=== PATIENT | male | born 1950 | race Caucasian/White ===

== ENCOUNTER → 2020-01-14 10:20 | Outpatient (CLI) | payer MEDICARE, OTHER, SELFPAY ==
--- NOTE | 2020-01-14 | DI.RAD.S_ITS ---
PROCEDURE: XR LUMBAR SPINE MIN 4V INDICATIONS: chronic left sided low back pain without sciatica TECHNIQUE: 5 views of the lumbar spine acquired. COMPARISON: None. FINDINGS: Bones: Minimal anterior wedging of the L1 vertebral body which could be physiologic. No fracture. Multilevel degenerative endplate sclerosis and spurring. Diffuse facet arthropathy. Grade 1 anterolisthesis of L4 on L5 and grade 1 retrolisthesis of L1 on L2 and L2 on L3. Severe narrowing of the L2-L3 and L3-L4 disc spaces as well as the L5-S1 disc space. Scoliosis also partially visualized. Soft tissues: Overlying bowel gas pattern is normal. No suspicious soft tissue calcifications. No evidence of abnormal motion with dynamic flexion and extension lateral views. IMPRESSION: Severe multilevel lumbar spondylosis and facet arthropathy as above Multilevel spondylolisthesis as above. No evidence of abnormal motion with dynamic flexion and extension lateral views. Dictated by: Cole Christopher M.D. on 01/14/2020 at 14:39 Approved by: Cole Christopher M.D. on 01/14/2020 at 14:49
--- NOTE | 2020-01-14 | DI.US.S_ITS ---
PROCEDURE: US ABD AORTA ANEURYSM SCREEN INDICATIONS: essential primary hypertension TECHNIQUE: Real time scanning was performed of the aorta and iliac arteries, with image documentation. COMPARISON: [facility], CR, XR LUMBAR SPINE MIN 4V, 01/14/2020, 10:31. FINDINGS: Aorta: Proximal aortic diameter measures 2.4 x 2.5 cm. Mid-aorta is not seen, as it is obscured by overlying bowel gas. Distal aortic diameter is 2.3 x 2.7 cm. Iliac arteries: Right common iliac artery measures 1.5 x 1.5 cm. Left common iliac artery measures 1.5 x 1.5 cm. IMPRESSION: Negative for aneurysm. Dictated by: Michael Heaton M.D. on 01/14/2020 at 13:59 Approved by: Michael Heaton M.D. on 01/14/2020 at 14:00
== END ==
PROVIDERS: Family Provider Family Medicine; PCP Family Medicine; Referring Provider Family Medicine; Visit Provider Family Medicine
DX: Z13.6 Encounter for screening for cardiovascular disorders (principal); M54.5 Low back pain; M47.816 Spondylosis without myelopathy or radiculopathy, lumbar region; M43.16 Spondylolisthesis, lumbar region; I10 Essential (primary) hypertension; E78.5 Hyperlipidemia, unspecified; G89.29 Other chronic pain
CPT/HCPCS: 72110; 76706

== ENCOUNTER → 2021-06-28 13:26 | Outpatient (CLI) | payer MEDICARE, OTHER, SELFPAY ==
[2021-06-29 22:49] LABS: Prostate Specific Antigen 4.49 ng/mL (0.10-4.00)
== END ==
PROVIDERS: Family Provider Family Medicine; PCP Family Medicine; Visit Provider Specialist
DX: R97.20 Elevated prostate specific antigen [PSA] (principal)
CPT/HCPCS: 84153

== ENCOUNTER → 2021-09-22 11:35 | Outpatient (CLI) | payer MEDICARE, OTHER, SELFPAY ==
[2021-09-22 19:17] LABS: Add Manual Diff / Slide Review NO; Basophils Absolute Auto 0 /uL (0-100); Basophils Percent Auto 0.4 % (0-2); Eosinophils Absolute Auto 100 /uL (0-450); Eosinophils Percent Auto 2.2 % (2-4); Hematocrit 45.7 % (41-53); Hemoglobin 15.9 g/dL (13.5-17.5); Lymphocytes Absolute Auto 1100 /uL (1100-4500); Lymphocytes Percent Auto 22.2 % (25-40); Mean Corpuscular HGB Conc 34.8 % (30-36); Mean Corpuscular Hemoglobin 33.5 PG (26-34); Mean Corpuscular Volume 96.3 fL (80-100); Monocytes Absolute Auto 500 /uL (0-900); Monocytes Percent Auto 10.1 % (3-14); Neutrophils Absolute Auto 3300 /uL (1500-7000); Neutrophils Percent Auto 65.1 % (50-75); Platelet Count 189 X10^3/uL (150-400); Red Blood Cell Count 4.75 X10^6/uL (4.5-5.9); Red Cell Distribution Width 13.4 % (11.6-14.8); White Blood Cell Count 5.1 X10^3/uL (4.5-11.0)
[2021-09-22 19:25] LABS: Alanine Aminotransferase 33 IU/L (<50); Albumin 3.7 g/dL (3.5-5.0); Albumin Globulin Ratio 1.6 (1.0-2.8); Alkaline Phosphatase 66 U/L (38-126); Aspartate Aminotransferase 32 IU/L (17-59); BUN Creatinine Ratio 19.5 (6-22); Bilirubin Total 0.5 mg/dL (0.2-1.3); Blood Urea Nitrogen 16 mg/dL (9-20); Calcium 9.3 mg/dL (8.4-10.2); Carbon Dioxide 28 mmol/L (22-32); Chloride 105 mmol/L (98-107); Cholesterol 154 mg/dL (140-199); Estimated Glomerular Filt Rate > 60 mL/min (>60); Globulin 2.3 g/dL (1.7-4.1); Glucose 115 mg/dL (80-110); HDL Cholesterol 33 mg/dL (40-60); HEMOLYSIS < 15 (0-50); LDL Cholesterol Calculated 96 mg/dL (<100); Sodium 138 mmol/L (137-145); Triglycerides 126 mg/dL (35-150)
[2021-09-22 19:54] LABS: Prostate Specific Antigen Scrn 4.04 ng/mL (0.1-4.0)
[2021-09-22 22:42] LABS: Hemoglobin A1C% w Est Avg Glu 5.5 % (4.0-6.0)
== END ==
PROVIDERS: Family Provider Family Medicine; PCP Family Medicine; Visit Provider Family Medicine
DX: Z12.5 Encounter for screening for malignant neoplasm of prostate (principal); I10 Essential (primary) hypertension; R73.09 Other abnormal glucose; E78.5 Hyperlipidemia, unspecified; K22.70 Barrett's esophagus without dysplasia; N13.8 Other obstructive and reflux uropathy; N40.1 Benign prostatic hyperplasia with lower urinary tract symptoms; R97.20 Elevated prostate specific antigen [PSA]; Z87.898 Personal history of other specified conditions
CPT/HCPCS: 80053; 80061; 83036; 85025; G0103

== ENCOUNTER → 2022-10-24 13:27 | Outpatient (CLI) | payer MEDICARE, OTHER, SELFPAY ==
[2022-10-24 20:00] LABS: Prostate Specific Antigen 3.92 ng/mL (0.10-4.00)
== END ==
PROVIDERS: Family Provider Family Medicine; PCP Family Medicine; Visit Provider Specialist
DX: R97.20 Elevated prostate specific antigen [PSA] (principal)
CPT/HCPCS: 84153

== ENCOUNTER → 2022-12-07 12:57 | Outpatient (CLI) | payer MEDICARE, OTHER, SELFPAY ==
[2022-12-07 19:43] LABS: Add Manual Diff / Slide Review NO; Basophils Absolute Auto 0 /uL (0-100); Basophils Percent Auto 0.4 % (0-2); Eosinophils Absolute Auto 100 /uL (0-450); Eosinophils Percent Auto 2.2 % (2-4); Hematocrit 46.2 % (41-53); Hemoglobin 15.9 g/dL (13.5-17.5); Lymphocytes Absolute Auto 1100 /uL (1100-4500); Lymphocytes Percent Auto 19.3 % (25-40); Mean Corpuscular HGB Conc 34.5 % (30-36); Mean Corpuscular Volume 98.5 fL (80-100); Monocytes Absolute Auto 400 /uL (0-900); Monocytes Percent Auto 7.7 % (3-14); Neutrophils Absolute Auto 4000 /uL (1500-7000); Neutrophils Percent Auto 70.4 % (50-75); Platelet Count 201 X10^3/uL (150-400); Red Blood Cell Count 4.69 X10^6/uL (4.5-5.9); Red Cell Distribution Width 13.3 % (11.6-14.8); White Blood Cell Count 5.7 X10^3/uL (4.5-11.0)
[2022-12-07 19:56] LABS: Alanine Aminotransferase 31 IU/L (<50); Albumin Globulin Ratio 1.7 (1.0-2.8); Alkaline Phosphatase 64 U/L (38-126); Aspartate Aminotransferase 30 IU/L (17-59); BUN Creatinine Ratio 20.5 (6-22); Bilirubin Total 0.9 mg/dL (0.2-1.3); Blood Urea Nitrogen 16 mg/dL (9-20); Calcium 9.4 mg/dL (8.4-10.2); Carbon Dioxide 27 mmol/L (22-32); Chloride 101 mmol/L (98-107); Cholesterol 190 mg/dL (140-199); Estimated Glomerular Filt Rate > 60 mL/min (>60); Globulin 2.4 g/dL (1.7-4.1); Glucose 105 mg/dL (80-110); HDL Cholesterol 42 mg/dL (40-60); HEMOLYSIS < 15 (0-50); LDL Cholesterol Calculated 102 mg/dL (<100); Potassium 3.8 mmol/L (3.4-5.1); Sodium 136 mmol/L (137-145); Total Protein 6.4 g/dL (6.3-8.2); Triglycerides 231 mg/dL (35-150)
[2022-12-07 20:23] LABS: TSH w/ Reflex to FT4 1.37 uIU/mL (0.47-4.68)
[2022-12-08 16:24] LABS: Hep C Virus Ab w/Reflex Quant NEGATIVE s/c (NEGATIVE)
== END ==
PROVIDERS: Family Provider Family Medicine; PCP Family Medicine; Visit Provider Family Medicine
DX: I10 Essential (primary) hypertension (principal); E78.2 Mixed hyperlipidemia; E78.5 Hyperlipidemia, unspecified; K22.70 Barrett's esophagus without dysplasia; R73.09 Other abnormal glucose; R97.20 Elevated prostate specific antigen [PSA]; Z68.38 Body mass index [BMI] 38.0-38.9, adult
CPT/HCPCS: 80053; 80061; 84443; 85025; 86803

== ENCOUNTER → 2023-10-24 10:48 | Outpatient (CLI) | payer MEDICARE, OTHER, SELFPAY | PROVIDERS: Family Provider Family Medicine; PCP Family Medicine; Visit Provider Specialist | DX: R97.20 Elevated prostate specific antigen [PSA] (principal) | CPT/HCPCS: 84153 ==

== ENCOUNTER → 2024-01-30 14:27 | Outpatient (CLI) | payer MEDICARE, OTHER, SELFPAY | PROVIDERS: Family Provider Family Medicine; PCP Family Medicine; Visit Provider Urology | DX: Z87.898 Personal history of other specified conditions (principal) | CPT/HCPCS: 84153; 84154 ==

== ENCOUNTER → 2024-05-06 10:10 | Outpatient (CLI) | payer MEDICARE, OTHER, SELFPAY ==
[2024-05-06 19:23] LABS: Chloride 109 mmol/L (98-107); HEMOLYSIS 49 (0-50)
[2024-05-06 19:26] LABS: BUN Creatinine Ratio 31.3 (6-22); Blood Urea Nitrogen 20 mg/dL (9-20); Calcium 9.3 mg/dL (8.4-10.2); Carbon Dioxide 24 mmol/L (22-32); Cholesterol 164 mg/dL (140-199); Estimated Glomerular Filt Rate > 60 mL/min (>60); Glucose 118 mg/dL (80-110); HDL Cholesterol 38 mg/dL (40-60); LDL Cholesterol Calculated 105 mg/dL (<100); Potassium 4.2 mmol/L (3.4-5.1); Sodium 138 mmol/L (137-145); Triglycerides 106 mg/dL (35-150)
[2024-05-06 19:30] LABS: Add Manual Diff / Slide Review NO; Basophils Absolute Auto 0 /uL (0-100); Basophils Percent Auto 0.6 % (0-2); Eosinophils Absolute Auto 200 /uL (0-450); Hematocrit 46.2 % (41-53); Hemoglobin 15.6 g/dL (13.5-17.5); Lymphocytes Absolute Auto 1800 /uL (1100-4500); Lymphocytes Percent Auto 26.3 % (25-40); Mean Corpuscular HGB Conc 33.6 % (30-36); Mean Corpuscular Hemoglobin 33.1 PG (26-34); Mean Corpuscular Volume 98.3 fL (80-100); Monocytes Absolute Auto 600 /uL (0-900); Monocytes Percent Auto 9.6 % (3-14); Neutrophils Absolute Auto 4000 /uL (1500-7000); Neutrophils Percent Auto 60.5 % (50-75); Platelet Count 207 X10^3/uL (150-400); Red Cell Distribution Width 13.7 % (11.6-14.8); White Blood Cell Count 6.7 X10^3/uL (4.5-11.0)
== END ==
PROVIDERS: Family Provider Family Medicine; PCP Family Medicine; Visit Provider Family Medicine
DX: K22.70 Barrett's esophagus without dysplasia (principal); E78.2 Mixed hyperlipidemia; N40.1 Benign prostatic hyperplasia with lower urinary tract symptoms; N13.8 Other obstructive and reflux uropathy; R97.20 Elevated prostate specific antigen [PSA]; I10 Essential (primary) hypertension
CPT/HCPCS: 80048; 80061; 84153; 85025

== ENCOUNTER → 2024-07-10 12:42 | Outpatient (CLI) | payer MEDICARE, OTHER, SELFPAY | PROVIDERS: PCP Family Medicine; Visit Provider Physician Assistant Medical | DX: M54.9 Dorsalgia, unspecified (principal) | CPT/HCPCS: 87086 ==

== ENCOUNTER → 2024-07-15 11:18 | Outpatient (CLI) | payer MEDICARE, OTHER, SELFPAY | PROVIDERS: PCP Family Medicine; Visit Provider Urology | DX: Z87.898 Personal history of other specified conditions (principal); N40.1 Benign prostatic hyperplasia with lower urinary tract symptoms; N13.8 Other obstructive and reflux uropathy | CPT/HCPCS: 84153; 84154 ==

== ENCOUNTER → 2024-07-16 15:48 | Outpatient (CLI) | payer MEDICARE, OTHER, SELFPAY ==
--- NOTE | 2024-07-16 15:49 | DI.US.S_ITS ---
PROCEDURE: US RENAL COMPLETE INDICATIONS: R/O kidney stone R groin hernia TECHNIQUE: Real-time scanning was performed of the kidneys and bladder, with image documentation. COMPARISON: None. FINDINGS: Kidneys: Kidneys are normal in size. Right kidney measures 12.8 cm long; left kidney measures 14.0 cm long. Right renal cortical thickness is 1.2 cm; left renal cortical thickness is 1.7 cm. Renal cortical echotexture is normal. No hydronephrosis or nephrolithiasis. No suspicious solid mass lesions. Simple cyst at the inferior pole the right kidney measuring 1.6 cm. Bladder: Pre-void bladder volume is 126 mL. Post-void residual is 76 mL. Bladder appears to have a mildly irregular wall. On pre-void images, bilateral ureteral jets are noted with color Doppler interrogation. (Of note, ureteral jets may not be detectable in up to 25% of cases due to insufficient differences in specific gravity between ureteral and bladder urine). Miscellaneous: No free pelvic fluid. Right inguinal hernia which appears to only contain fat with defect measuring 2.3 x 2.2 cm and is mostly reducible. Prostate is enlarged. IMPRESSION: 1. No renal stones are identified. No hydronephrosis. 2. Right inguinal hernia containing fat which appears mostly reducible. 3. Prostate is enlarged. Postvoid residual volume of 76 mL. Bladder wall appears mildly irregular, may be secondary to chronic bladder outlet obstruction. Dictated by: Edwin Bowman M.D. on 07/17/2024 at 13:59 Approved by: Edwin Bowman M.D. on 07/17/2024 at 14:08
== END ==
PROVIDERS: PCP Family Medicine; Referring Provider Physician Assistant Medical; Visit Provider Physician Assistant Medical
DX: K40.90 Unilateral inguinal hernia, without obstruction or gangrene, not specified as recurrent (principal); N40.0 Benign prostatic hyperplasia without lower urinary tract symptoms; R10.9 Unspecified abdominal pain
CPT/HCPCS: 76770

== ENCOUNTER → 2024-10-30 10:13 | Outpatient (CLI) | payer MEDICARE, OTHER, SELFPAY ==
[2024-10-30 21:13] LABS: Add Manual Diff / Slide Review NO; Hematocrit 48.0 % (41-53); Hemoglobin 16.3 g/dL (13.5-17.5); Lymphocytes Absolute Auto 1400 /uL (1100-4500); Mean Corpuscular HGB Conc 34.0 % (30-36); Mean Corpuscular Hemoglobin 33.8 PG (26-34); Mean Corpuscular Volume 99.5 fL (80-100); Platelet Count 172 X10^3/uL (150-400)
[2024-10-30 21:43] LABS: Blood Urea Nitrogen 18 mg/dL (9-20); Calcium 10.0 mg/dL (8.4-10.2); Carbon Dioxide 24 mmol/L (22-32); Chloride 108 mmol/L (98-107); Cholesterol 161 mg/dL (140-199); Estimated Glomerular Filt Rate > 60 mL/min (>60); Glucose 113 mg/dL (70-99); HDL Cholesterol 42 mg/dL (40-60); HEMOLYSIS 18 (0-50); Potassium 4.3 mmol/L (3.4-5.1); Sodium 139 mmol/L (137-145); Triglycerides 122 mg/dL (35-150)
[2024-10-30 22:14] LABS: Prostate Specific Antigen 4.43 ng/mL (0.10-4.00)
== END ==
PROVIDERS: PCP Family Medicine; Visit Provider Family Medicine
DX: E78.2 Mixed hyperlipidemia (principal); N40.1 Benign prostatic hyperplasia with lower urinary tract symptoms; K22.70 Barrett's esophagus without dysplasia; N13.8 Other obstructive and reflux uropathy; R73.09 Other abnormal glucose; R97.20 Elevated prostate specific antigen [PSA]; I10 Essential (primary) hypertension
CPT/HCPCS: 80048; 80061; 84153; 85025

== ENCOUNTER 2025-03-28 15:22 | Observation (INO) | payer MEDICARE, OTHER, SELFPAY ==
[2025-03-28] VITALS (20 sets, daily range): BP systolic 138–166; BP diastolic 76–91; PULSE 67–79; RESP 15–23; TEMP 36.5–36.7; O2SAT 92–96; BMI 23.0; BMI 31.9
--- NOTE | 2025-03-28 | DI.ECHO.S_ITS ---
[facility]+ [facility] : : [address] : : [place] : : [id number] : : Phone: [phone] Echocardiogram Report + + :Name: DENISE MARION Study Date: 03/29/2025 Height: 72 in : :[facility] ReadingLocation: Weight: 230 lb : : Gender: Male BSA: 2.3 m2 : :: 1950 Age: 75 yrs BP: 145/91 mmHg: :Reason For Study: PE : :Ordering Physician: JASMYN, : :MAYANK Performed By: Alban Odell : :Referring: MAYANK VINES : + + Interpretation Summary The study quality was technically difficult. No parasternal or apical windows available. Study obtained mostly from the right subcostal window. The left ventricular ejection fraction is grossly normal. The right ventricle grossly appears normal in size with probable normal systolic function. No obvious valvular abnormalities. The aortic root is mildly dilated. Procedure: A two-dimensional transthoracic echocardiogram with color flow and Doppler was performed. The study quality was technically difficult. The study quality was technically limited. There is no prior echocardiogram noted for this patient. The patient was in normal sinus rhythm during the exam. Left Ventricle: The left ventricle is grossly normal size. There is normal left ventricular wall thickness. The left ventricular ejection fraction is grossly normal. Right Ventricle: The right ventricle is not well visualized. The right ventricle grossly appears normal in size with probable normal systolic function. Atria: The left atrium is not well visualized. Right atrium not well visualized. There is no Doppler evidence for an interatrial shunt. Mitral Valve: The mitral valve is not well visualized. The mitral valve is grossly normal. There is no mitral regurgitation noted. Aortic Valve: The aortic valve is trileaflet. The aortic valve opens well. The aortic valve is slightly calcified. No aortic regurgitation is present. Tricuspid Valve: The tricuspid valve leaflets are thin and pliable. There is trace tricuspid regurgitation. Pulmonic Valve: The pulmonic valve is not well seen, but is grossly normal. There is no pulmonic valvular regurgitation. Great Vessels: The aortic root is mildly dilated. The ascending aorta could not be visualized. The pulmonary artery is not well visualized, but is probably normal size. The IVC is dilated (diameter is greater than 2.1 cm) yet it collapses greater than 50% with a sniff. This suggests a right atrial pressure of 8 mm Hg. Pericardium/ Pleura There is no pericardial effusion. MMode/2D Measurements & Calculations LVIDd: 5.3 cm LVOT diam: 1.9 cm LVIDs: 3.5 cm Ao root diam: 4.0 cm FS: 33.9 % EPSS: 1.3 cm IVSd: 1.00 cm LVPWd: 1.0 cm LV echols. diameter/BSA (cm/m^2): 2.3 LV sys. diameter/BSA (cm/m^2): 1.5 Doppler Measurements & Calculations PA V2 max: 111.6 cm/sec PA V2 mean: 73.6 cm/sec PA mean P.5 mmHg PA pr(Accel): 58.4 mmHg Reading Physician:03:48 PM
--- NOTE | 2025-03-28 16:19 | ED_ITS ---
HPI - Abdominal Pain <Kelli Shrestha PA-C - Last Filed: 03/28/25 20:38> General Chief Complaint: Abdominal Pain Stated Complaint: coughed yesterday and felt pain in hernia Time Seen by Provider: 03/28/25 16:17 Source: patient Mode of arrival: Ambulatory History of Present Illness HPI narrative: Mr. Godfrey is a pleasant 75-year-old male with a past medical history of HTN, HLD, BPH, Barretts esophagus, right inguinal hernia who presents to the emergency department for severe right inguinal hernia pain since coughing yesterday, with increased swelling over the last month. Patient states he had this hernia since the spring however over the last month it has gotten more swollen. Last night while having a coughing fit which he attributes to his Camara's esophagus. While coughing he developed acute pain in the right hernia and it became larger than usual. He is not in a significant amount of pain right now but he does notice hernia is much larger than it previously was. Patient states that he has been having regular bowel movements, no nausea vomiting dysuria hematuria. No blood thinners. No fevers or chills. He has not eaten anything today. Related Data Home Medications ?Medication ?Instructions ?Recorded ?Confirmed cholecalciferol (vitamin D3) 50 50 mcg PO DAILY 03/28/25 mcg (2,000 unit) tablet coenzyme Q10 75 mg capsule (Ultra 300 mg PO DAILY 10/3003/28/25 CoQ10) loratadine 10 mg capsule 10 mg PO DAILY PRN allergy s ymptoms 11/23/22 03/28/25 omega [id number]-[id number]-fish oil 230 mg See Rx Instructions PO DAILY PRN 11/23/22 10/10/24 (150 mg-30 mg)-710 mg emulsion packet triamcinolone acetonide 0.1 % 1 applic topical DAILY P RN 11/23/22 10/10/24 topical cream aspirin 81 mg tablet,delayed 81 mg PO DAILY #0 tabs 03/28/25 release fluorouracil 5 % topical cream 1 applic topical BID 03/28/25 Previous Rx's ?Medication ?Instructions ?Recorded tamsulosin 0.4 mg capsule 0.8 mg (2 x 0.4 mg) PO BEDTI ME 12/17/24 #180 caps lisinopril 20 1 tab PO DAILY #90 tabs 12/30 11/22 mg-hydrochlorothiazide 12.5 mg tablet atorvastatin 20 mg tablet (Lipitor) 20 mg PO BEDTIME # 90 tabs 01/16/25 apixaban 5 mg (74 tabs) tablets in See Rx Instructions PO .COMPLEX 03/29/25 a dose pack (Eliquis DVT-PE Treat #74 ea 30D Start) Allergies Allergy/AdvReac Type Severity Reaction Status Date / Time morphine Allergy Unknown Verified 03/28/25 15:51 Review of Systems <Kelli Shrestha PA-C - Last Filed: 03/28/25 20:38> Review of Systems ROS Unobtainable: All systems reviewed & are unremarkable except as noted in HPI and below Patient History <Kelli Shrestha PA-C - Last Filed: 03/28/25 20:38> Medical History Shoulder pain (~1974) Foot pain (~2014) Mumps Measles Chicken pox Ruptured tympanic membrane (~2004) History of urinary incontinence (~2019) GERD (gastroesophageal reflux disease) (~2009) Routine general medical examination at a health care facility History of melanoma (~1995) Erectile dysfunction BPH w urinary obs/LUTS (~2014) Elevated PSA Tonsillectomy planned Male circumcision Male erectile disorder Elevated PSA Surgical History Anesthesia History of carpal tunnel surgery (~2004) History of tonsillectomy (~1956) Melanoma (~1995) H/O shoulder surgery (~1973) Family History Father Stroke Heart disease Hyperlipidemia Mother Emphysema of lung Sister Emphysema of lung Social History marital status: number of children: 1 household members: spouse and children Smoking Status: Never smoker alcohol intake: current Smoking Status: Never smoker Alcohol type: wine Exam <Kelli Shrestha PA-C - Last Filed: 03/28/25 20:38> Narrative Exam Narrative: GENERAL: 75 year old patient appears stated age. Well-developed patient, in no acute distress. HEAD: Atraumatic. Normocephalic. EYES: No scleral icterus. No injection or drainage. NECK: Trachea midline. Cervical ROM intact. CARDIOVASCULAR: Regular rate and rhythm. RESPIRATORY: ?Nonlabored respirations. ?Speaking in clear, full sentences. ?Somewhat diminished breath sounds. No wheezing or crackles. GASTROINTESTINAL: Abdomen soft, nondistended. There is a large right inguinal hernia, in his soft and compressible but not easily reducible. No overlying skin changes. No tenderness to palpation of bilateral testicles. Bowel sounds are present. EXTREMITIES: 1+ BL LE edema. BACK: No CVA tenderness. NEURO: AOx3. ?Clear speech. ?Moves all 4 extremities appropriately. SKIN: No rash or erythema of visible areas. Initial Vital Signs Initial Vital Signs: Vital Signs Temperature 98.0 F 03/28/25 15:51 Pulse Rate 79 03/28/25 15:51 Respiratory Rate 18 03/28/25 15:51 Blood Pressure 154/90 H 03/28/25 15:51 Pulse Oximetry 95 03/28/25 15:51 Oxygen Delivery Method Room Air 03/28/25 15:51 <Jose Correia MD - Last Filed: 03/31/25 08:21> Initial Vital Signs Initial Vital Signs: Vital Signs Temperature 98.0 F 03/28/25 15:51 Pulse Rate 79 03/28/25 15:51 Respiratory Rate 18 03/28/25 15:51 Blood Pressure 154/90 H 03/28/25 15:51 Pulse Oximetry 95 03/28/25 15:51 Oxygen Delivery Method Room Air 03/28/25 15:51 Course <Kelli Shrestha PA-C - Last Filed: 03/28/25 20:38> Orders Ordered: Discontinued Medications Acetaminophen (Acetaminophen 325 Mg Tablet) 650 mg PO Q6H PRN PRN Reason: Fever/Mild Pain (1-3) Hydrocodone Bitart/Acetaminophen (Hydrocodone/Acet 5/325 Tablet) 1 tab PO Q4H PRN PRN Reason: Pain, Moderate (4-6) Last Admin: 03/29/25 13:09 Dose: 1 tab Documented By: RONY Apixaban (Apixaban 5 Mg Tablet) 10 mg PO NOW ONE Stop: 03/29/25 17:02 Aspirin (Aspirin Ec 81 Mg Tablet) 81 mg PO DAILY STEFFI Last Admin: 03/29/25 09:18 Dose: 81 mg Documented By: RONY Enoxaparin Sodium (Enoxaparin 100 Mg/Ml Syringe) 75 mg 1 mg/kg (75 mg) SUBCUT NOW ONE Stop: 03/28/25 21:33 Last Admin: 03/28/25 22:17 Dose: 75 mg Documented By: ORQUIDEA Enoxaparin Sodium (Enoxaparin 100 Mg/Ml Syringe) 75 mg 1 mg/kg (75 mg) SUBCUT BID [facility] Last Admin: 03/29/25 09:18 Dose: 75 mg Documented By: RONY Hydromorphone HCl (Hydromorphone Hcl 0.5 Mg/0.5 Ml Syringe) 0.5 mg IV NOW ONE Stop: 03/28/25 16:33 Last Admin: 03/28/25 16:57 Dose: 0.5 mg Documented By: ORQUIDEA Sodium Chloride (Normal Saline 0.9%) 1,000 mls @ 500 mls/hr IV BOLUS ONE Stop: 03/28/25 18:31 Last Infusion: 03/28/25 17:26 Dose: Infused Documented By: Infusion: 03/28/25 17:26 Dose: 0 mls/hr Documented By: Admin: 03/28/25 16:58 Dose: 500 mls/hr Documented By: ORQUIDEA Naloxone HCl (Naloxone 0.4 Mg/Ml Vial) 0.2 mg IV Q2MIN PRN PRN Reason: Opiate Reversal Ondansetron HCl (Ondansetron 4 Mg/2 Ml Inj) 4 mg IV NOW ONE Stop: 03/28/25 16:33 Last Admin: 03/28/25 16:57 Dose: 4 mg Documented By: ORQUIDEA Ondansetron HCl (Ondansetron 4 Mg/2 Ml Inj) 4 mg IV Q8HR PRN PRN Reason: Nausea And Vomiting Tamsulosin HCl (Tamsulosin 0.4 Mg Capsule) 0.8 mg PO BEDTIME [facility] Vital Signs Vital signs: Vital Signs - 8 hr 03/28/25 15:51 03/28/25 16:57 03/28/25 17:00 Temperature 98.0 F Pulse Rate 79 68 Respiratory Rate 18 Blood Pressure 154/90 H 138/76 Pulse Oximetry 95 92 Oxygen Delivery Method Room Air 03/28/25 17:00 03/28/25 17:37 03/28/25 18:00 Temperature Pulse Rate 67 73 72 Respiratory Rate 16 Blood Pressure Pulse Oximetry 95 93 94 Oxygen Delivery Method 03/28/25 18:03 03/28/25 18:03 03/28/25 18:30 Temperature Pulse Rate 77 Respiratory Rate 16 Blood Pressure 145/79 H 156/79 H Pulse Oximetry 95 Oxygen Delivery Method 03/28/25 18:30 03/28/25 19:00 03/28/25 19:30 Temperature Pulse Rate 73 76 75 Respiratory Rate 20 Blood Pressure Pulse Oximetry 95 95 93 Oxygen Delivery Method 03/28/25 19:46 03/28/25 19:46 03/28/25 20:00 Temperature Pulse Rate 75 Respiratory Rate 16 Blood Pressure 153/84 H 156/89 H Pulse Oximetry 96 Oxygen Delivery Method 03/28/25 20:00 03/28/25 20:30 03/28/25 20:30 Temperature Pulse Rate 72 72 Respiratory Rate 22 Blood Pressure 166/88 H Pulse Oximetry 94 95 Oxygen Delivery Method 03/28/25 20:43 03/28/25 21:00 Temperature Pulse Rate Respiratory Rate 16 Blood Pressure 151/78 H Pulse Oximetry 94 Oxygen Delivery Method <Jose Correia MD - Last Filed: 03/31/25 08:21> Orders Ordered: Discontinued Medications Acetaminophen (Acetaminophen 325 Mg Tablet) 650 mg PO Q6H PRN PRN Reason: Fever/Mild Pain (1-3) Hydrocodone Bitart/Acetaminophen (Hydrocodone/Acet 5/325 Tablet) 1 tab PO Q4H PRN PRN Reason: Pain, Moderate (4-6) Last Admin: 03/29/25 13:09 Dose: 1 tab Documented By: RONY Apixaban (Apixaban 5 Mg Tablet) 10 mg PO NOW ONE Stop: 03/29/25 17:02 Aspirin (Aspirin Ec 81 Mg Tablet) 81 mg PO DAILY [facility] Last Admin: 03/29/25 09:18 Dose: 81 mg Documented By: RONY Enoxaparin Sodium (Enoxaparin 100 Mg/Ml Syringe) 75 mg 1 mg/kg (75 mg) SUBCUT NOW ONE Stop: 03/28/25 21:33 Last Admin: 03/28/25 22:17 Dose: 75 mg Documented By: ORQUIDEA Enoxaparin Sodium (Enoxaparin 100 Mg/Ml Syringe) 75 mg 1 mg/kg (75 mg) SUBCUT BID [facility] Last Admin: 03/29/25 09:18 Dose: 75 mg Documented By: RONY Hydromorphone HCl (Hydromorphone Hcl 0.5 Mg/0.5 Ml Syringe) 0.5 mg IV NOW ONE Stop: 03/28/25 16:33 Last Admin: 03/28/25 16:57 Dose: 0.5 mg Documented By: ORQUIDEA Sodium Chloride (Normal Saline 0.9%) 1,000 mls @ 500 mls/hr IV BOLUS ONE Stop: 03/28/25 18:31 Last Infusion: 03/28/25 17:26 Dose: Infused Documented By: Infusion: 03/28/25 17:26 Dose: 0 mls/hr Documented By: Admin: 03/28/25 16:58 Dose: 500 mls/hr Documented By: ORQUIDEA Naloxone HCl (Naloxone 0.4 Mg/Ml Vial) 0.2 mg IV Q2MIN PRN PRN Reason: Opiate Reversal Ondansetron HCl (Ondansetron 4 Mg/2 Ml Inj) 4 mg IV NOW ONE Stop: 03/28/25 16:33 Last Admin: 03/28/25 16:57 Dose: 4 mg Documented By: ORQUIDEA Ondansetron HCl (Ondansetron 4 Mg/2 Ml Inj) 4 mg IV Q8HR PRN PRN Reason: Nausea And Vomiting Tamsulosin HCl (Tamsulosin 0.4 Mg Capsule) 0.8 mg PO BEDTIME [facility] Vital Signs Vital signs: Vital Signs - 8 hr 03/28/25 15:51 03/28/25 16:57 03/28/25 17:00 Temperature 98.0 F Pulse Rate 79 68 Respiratory Rate 18 Blood Pressure 154/90 H 138/76 Pulse Oximetry 95 92 Oxygen Delivery Method Room Air 03/28/25 17:00 03/28/25 17:37 03/28/25 18:00 Temperature Pulse Rate 67 73 72 Respiratory Rate 16 Blood Pressure Pulse Oximetry 95 93 94 Oxygen Delivery Method 03/28/25 18:03 03/28/25 18:03 03/28/25 18:30 Temperature Pulse Rate 77 Respiratory Rate 16 Blood Pressure 145/79 H 156/79 H Pulse Oximetry 95 Oxygen Delivery Method 03/28/25 18:30 03/28/25 19:00 03/28/25 19:30 Temperature Pulse Rate 73 76 75 Respiratory Rate 20 Blood Pressure Pulse Oximetry 95 95 93 Oxygen Delivery Method 03/28/25 19:46 03/28/25 19:46 03/28/25 20:00 Temperature Pulse Rate 75 Respiratory Rate 16 Blood Pressure 153/84 H 156/89 H Pulse Oximetry 96 Oxygen Delivery Method 03/28/25 20:00 03/28/25 20:30 03/28/25 20:30 Temperature Pulse Rate 72 72 Respiratory Rate 22 Blood Pressure 166/88 H Pulse Oximetry 94 95 Oxygen Delivery Method 03/28/25 20:43 03/28/25 21:00 Temperature Pulse Rate Respiratory Rate 16 Blood Pressure 151/78 H Pulse Oximetry 94 Oxygen Delivery Method MDM - Abdominal Pain <Kelli Shrestha PA-C - Last Filed: 03/28/25 20:38> Medical Records Attestation: I reviewed the patient's medical records. Lab Data 03/29/25 05:24 03/29/25 05:24 Labs: Lab Results 03/28/25 03/28/25 03/28/25 Range/Units 16:50 18:45 20:08 WBC 7.0 (4.5-11.0) X10^3/uL RBC 4.58 (4.5-5.9) X10^6/uL Hgb 15.3 (13.5-17.5) g/dL Hct 44.9 (41-53) % MCV 97.9 (80-100) fL MCH 33.4 (26-34) PG MCHC 34.1 (30-36) % RDW 13.3 (11.6-14.8) % Plt Count 228 (150-400) X10^3/uL Neut % (Auto) 74.9 (50-75) % Lymph % (Auto) 15.3 L (25-40) % [place] % (Auto) 7.6 (3-14) % Eos % (Auto) 1.4 L (2-4) % Baso % (Auto) 0.8 (0-2) % Neut # (Auto) 5200 (7140-2539) /uL Lymph # (Auto) 1100 (1617-1509) /uL [place] # (Auto) 500 (0-900) /uL Eos # (Auto) 100 (0-450) /uL Baso # (Auto) 100 (0-100) /uL PT 12.2 (9.4-12.5) SECONDS INR 1.1 (0.9-1.3) APTT 27 (25.1-36.5) SECONDS Sodium 139 (137-145) mmol/L Potassium 3.8 (3.4-5.1) mmol/L Chloride 109 H (98-107) mmol/L Carbon Dioxide 26 (22-32) mmol/L BUN 19 (9-20) mg/dL Creatinine 0.69 (0.66-1.25) mg/dL Estimated GFR > 60 (>60) mL/min BUN/Creatinine Ratio 27.5 H (6-22) Glucose 102 H (70-99) mg/dL Lactate 1.1 (0.7-2.1) mmol/L Calcium 9.6 (8.4-10.2) mg/dL Total Bilirubin 0.6 (0.2-1.3) mg/dL AST 21 (17-59) IU/L ALT 17 (<50) IU/L Alkaline Phosphatase 58 (38-126) U/L Total Creatine Kinase < 20 L (55-170) U/L Troponin I 0.013 (0.01-0.034) ng/mL NT-Pro-B Natriuret Pep 369 (<450) pg/mL Total Protein 6.6 (6.3-8.2) g/dL Albumin 3.6 (3.5-5.0) g/dL Globulin 3.0 (1.7-4.1) g/dL Albumin/Globulin Ratio 1.2 (1.0-2.8) Lipase 32 (23-300) U/L Procalcitonin 0.039 (<0.5) ng/mL Urine RBC 0-1/hpf (0-5/HPF) Urine WBC 0-1/hpf (0-5/HPF) Ur Squamous Epith Cells 0-1 /hpf (0-5/HPF) Urine Bacteria Occasional (0-1) (None) Urine Mucus 1+ H (Negative) Ur Culture Indicated? Cult not indicated Vol Urine Centrifuged 10ml (spun) Point of care testing: Urine Dip Bedside Urine Glucose Negative Bedside Urine Bilirubin - Negative Bedside Urine Ketone + 15 Urine Specific [place] 1.015 Bedside Urine Occult Blood - Negative Bedside Urine pH 6.0 Bedside Urine Protein - Negative Bedside Urine Urobilinogen - Negative Bedside Urine Nitrite - Negative Bedside Urine Leukocytes - Negative Esterase Imaging Data CT scan - abdomen/pelvis: Radiologist's Impression: PROCEDURE: CT ABDOMEN PELVIS W CON INDICATIONS: large painful R inguinal hernia TECHNIQUE: After the administration of intravenous contrast, axial sections acquired from the lung bases to the pubic symphysis. Coronal and sagittal reformats were performed. For radiation dose reduction, the following was used: automated exposure control, adjustment of mA and/or kV according to patient size. COMPARISON: None. FINDINGS: Image quality: Diagnostic. Lower Chest: Loculated left-sided pleural effusion. Rounded atelectasis in the right lung base. Cardiomegaly. ABDOMEN: Liver: Scattered subcentimeter hypoattenuating lesions, too small to characterize by CT but probably small cysts. Gallbladder: No radiopaque gallstones or wall thickening. Biliary ducts: No biliary dilation. Pancreas: No ductal dilation. Spleen: Size is within normal limits. Adrenal Glands: No adrenal nodules. Kidneys and Ureters: No hydronephrosis. No solid mass. No complex renal cystic lesion which requires follow up. Stomach and Bowel: Normal colonic caliber, without significant wall thickening. Colonic diverticulosis without evidence of diverticulitis. Peritoneum: Small volume free fluid in the right inguinal canal. Ventral Wall: No significant ventral hernia. Abdominal Nodes: No retroperitoneal or mesenteric adenopathy by size criteria. Vessels: Aorta and inferior vena cava are normal in size. PELVIS: Pelvic Organs: Unremarkable. Bladder: Focal anterior bladder wall thickening with central calcification. Pelvic Nodes: No enlarged lymph nodes. Miscellaneous: Large right direct inguinal hernia containing the cecum and appendix. Small free fluid is present as well. Bones: No aggressive osseous abnormality. IMPRESSION: Large right direct inguinal hernia containing the cecum and noninflamed appendix. Trace free fluid within the inguinal canal is likely reactive. Anterior bladder wall thickening with coarse calcification, raising the concern for malignancy in a urachal remnant. Urology referral is recommended. Trace left loculated pleural effusion. Colonic diverticulosis without evidence of diverticulitis. Dictated by: Al London M.D. on 03/28/2025 at 17:54 Approved by: Al London M.D. on 03/28/2025 at 17:57 CTA Chest: Radiologist's Impression: PROCEDURE: CT ANGIO CHEST PE PROTOCOL INDICATIONS: cough, pleural effusion, occ hemoptysis, bladder Ca TECHNIQUE: After the administration of intravenous contrast, 2 mm thick sections acquired from the pulmonary apices to the posterior costophrenic angles. 3-dimensional maximum intensity projection (MIP) coronal and sagittal reformats were then acquired through the thorax. For radiation dose reduction, the following was used: automated exposure control, adjustment of mA and/or kV according to patient size. COMPARISON: None. FINDINGS: Image quality: Diagnostic. Pulmonary arteries: Pulmonary embolus in the distal right pulmonary artery, extending into the lobar and subsegmental pulmonary arteries, predominantly of the right upper lobe. Lower Neck: No enlarged lymph nodes. Thyroid: No thyroid nodules which require sonographic follow up, per consensus guidelines. Axillae: No enlarged lymph nodes. Chest Wall: Unremarkable. Bones: Unremarkable. Lungs and Pleura: Small loculated pleural effusion on the left, with bibasilar atelectasis. Heart: Heart size is globally enlarged, with normal left ventricle to right ventricle ratio. No pericardial effusion. Thoracic Vessels: No aortic aneurysm. Mediastinum and Jade: No enlarged lymph nodes. Esophagus: No wall thickening. No hiatal hernia. Upper Abdomen: Visualized upper abdomen solid organs and bowel loops appear normal. IMPRESSION: Moderate burden of distal main to lobar and segmental pulmonary embolus of the right lung. No evidence of heart strain or infarct. No acute cardiopulmonary process. Findings discussed with provider Kelli at time of dictation. Dictated by: Al London M.D. on 03/28/2025 at 19:52 Approved by: Al London M.D. on 03/28/2025 at 19:56 [facility] Narrative Medical decision making narrative: 75-year-old male with a past medical history of HTN, HLD, BPH, Barretts esophagus, right inguinal hernia who presents to the emergency department for severe right inguinal hernia pain since coughing yesterday, with increased swelling over the last month. Differential diagnosis includes but isn't limited to inguinal hernia, incarcerated hernia, strangulated hernia, appendicitis, colitis, UTI, etc. On exam the patient is in no acute distress, nontoxic appearing, vital signs appropriate. Patient does have a large palpable right inguinal hernia, it is soft, no overlying skin changes, I am not able to completely reduce it myself. We will obtain CT abdomen pelvis, CBC, CMP, lactate, urinalysis, treat with fluids Zofran and Dilaudid. CT abdomen pelvis reveals large right direct inguinal hernia containing the cecum and noninflamed appendix. No obstruction discussed. The anterior bladder wall is also thickened with coarse calcifications, raising concern for malignancy in a urachal remnant, urology referral recommended. Trace left loculated pleural effusion. Colonic diverticulosis without evidence of diverticulitis. Attending physician, Dr. Correia, performed bedside hernia reduction attempt. Hernia was not able to be completely reduced however it was partially reduced with subsequent decrease in hernia size. 1824: Dr. Correia spoke with general surgery, Dr. Chu, who recommends outpatient follow-up at this time. 1899: Printed and reviewed all imaging results with the patient his at the bedside. Discussed my concerns for possible bladder malignancy given CT results. Also discussed pleural effusion and upon further history patient informs me that he has actually been coughing up a little bit of blood the last few days but he assumed that this was because of his Barretts esophagus. After further discussion with Dr. Correia will add on CTA PE protocol. 1916: Spoke with urologist on-call, Dr. Power. Reviewed the patient's CT results with him concerning for bladder malignancy. At this time he recommends the patient follow up with the urologist for cystoscopy, no emergent recommendations. 1955: Received call from radiology, Dr. London. Patient does have a distal right pulmonary embolism, no heart strain. Dr. Correia made aware, EKG cardiac labs added. 2018: Final CTA read reveals moderate burden of distal main to lobar and segmental pulmonary embolus of the right lung. No evidence of heart strain or infarct. No acute cardiopulmonary process, there is a small loculated pleural effusion on the left with bibasilar atelectasis.' 2034: Printed and reviewed all imaging results with patient and his at bedside. Informed patient that he has a blood clot in his lung, we will need to be started on blood thinners and be admitted to the hospital. Patient denies any history hemorrhagic stroke, recent surgery, black stool, bloody stool, hematemesis or other concerns for bleed, no recent fall or trauma. Patient is agreeable to admission to the hospital. Transfer of care to nighttime ED doctor, Dr. Correia. <Jose Correia MD - Last Filed: 03/31/25 08:21> Lab Data Labs: Lab Results 11/03/28/25 03/28/25 Range/Units 16:50 18:45 20:08 WBC 7.0 (4.5-11.0) X10^3/uL RBC 4.58 (4.5-5.9) X10^6/uL Hgb 15.3 (13.5-17.5) g/dL Hct 44.9 (41-53) % MCV 97.9 (80-100) fL MCH 33.4 (26-34) PG MCHC 34.1 (30-36) % RDW 13.3 (11.6-14.8) % Plt Count 228 (150-400) X10^3/uL Neut % (Auto) 74.9 (50-75) % Lymph % (Auto) 15.3 L (25-40) % [place] % (Auto) 7.6 (3-14) % Eos % (Auto) 1.4 L (2-4) % Baso % (Auto) 0.8 (0-2) % Neut # (Auto) 5200 (0845-5276) /uL Lymph # (Auto) 1100 (7780-8549) /uL [place] # (Auto) 500 (0-900) /uL Eos # (Auto) 100 (0-450) /uL Baso # (Auto) 100 (0-100) /uL PT 12.2 (9.4-12.5) SECONDS INR 1.1 (0.9-1.3) APTT 27 (25.1-36.5) SECONDS Sodium 139 (137-145) mmol/L Potassium 3.8 (3.4-5.1) mmol/L Chloride 109 H (98-107) mmol/L Carbon Dioxide 26 (22-32) mmol/L BUN 19 (9-20) mg/dL Creatinine 0.69 (0.66-1.25) mg/dL Estimated GFR > 60 (>60) mL/min BUN/Creatinine Ratio 27.5 H (6-22) Glucose 102 H (70-99) mg/dL Lactate 1.1 (0.7-2.1) mmol/L Calcium 9.6 (8.4-10.2) mg/dL Total Bilirubin 0.6 (0.2-1.3) mg/dL AST 21 (17-59) IU/L ALT 17 (<50) IU/L Alkaline Phosphatase 58 (38-126) U/L Total Creatine Kinase < 20 L (55-170) U/L Troponin I 0.013 (0.01-0.034) ng/mL NT-Pro-B Natriuret Pep 369 (<450) pg/mL Total Protein 6.6 (6.3-8.2) g/dL Albumin 3.6 (3.5-5.0) g/dL Globulin 3.0 (1.7-4.1) g/dL Albumin/Globulin Ratio 1.2 (1.0-2.8) Lipase 32 (23-300) U/L Procalcitonin 0.039 (<0.5) ng/mL Urine RBC 0-1/hpf (0-5/HPF) Urine WBC 0-1/hpf (0-5/HPF) Ur Squamous Epith Cells 0-1 /hpf (0-5/HPF) Urine Bacteria Occasional (0-1) (None) Urine Mucus 1+ H (Negative) Ur Culture Indicated? Cult not indicated Vol Urine Centrifuged 10ml (spun) Point of care testing: Urine Dip Bedside Urine Glucose Negative Bedside Urine Bilirubin - Negative Bedside Urine Ketone + 15 Urine Specific [place] 1.015 Bedside Urine Occult Blood - Negative Bedside Urine pH 6.0 Bedside Urine Protein - Negative Bedside Urine Urobilinogen - Negative Bedside Urine Nitrite - Negative Bedside Urine Leukocytes - Negative Esterase MDM Narrative Medical decision making narrative: 75-year-old male with a past medical history of HTN, HLD, BPH, Barretts esophagus, right inguinal hernia who presents to the emergency department for severe right inguinal hernia pain since coughing yesterday, with increased swelling over the last month. Differential diagnosis includes but isn't limited to inguinal hernia, incarcerated hernia, strangulated hernia, appendicitis, colitis, UTI, etc. On exam the patient is in no acute distress, nontoxic appearing, vital signs appropriate. Patient does have a large palpable right inguinal hernia, it is soft, no overlying skin changes, I am not able to completely reduce it myself. We will obtain CT abdomen pelvis, CBC, CMP, lactate, urinalysis, treat with fluids Zofran and Dilaudid. EKG normal sinus rhythm rate 70 right bundle branch block. CT abdomen pelvis reveals large right direct inguinal hernia containing the cecum and noninflamed appendix. No obstruction discussed. The anterior bladder wall is also thickened with coarse calcifications, raising concern for malignancy in a urachal remnant, urology referral recommended. Trace left loculated pleural effusion. Colonic diverticulosis without evidence of diverticulitis. Attending physician, Dr. Correia, performed bedside hernia reduction attempt. Hernia was not able to be completely reduced however it was partially reduced with subsequent decrease in hernia size. 5: Dr. Correia spoke with general surgery, Dr. Chu, who recommends outpatient follow-up at this time. 1899: Printed and reviewed all imaging results with the patient his at the bedside. Discussed my concerns for possible bladder malignancy given CT results. Also discussed pleural effusion and upon further history patient informs me that he has actually been coughing up a little bit of blood the last few days but he assumed that this was because of his Barretts esophagus. After further discussion with Dr. Correia will add on CTA PE protocol. 1916: Spoke with urologist on-call, Dr. Power. Reviewed the patient's CT results with him concerning for bladder malignancy. At this time he recommends the patient follow up with the urologist for cystoscopy, no emergent recommendations. 1955: Received call from radiology, Dr. London. Patient does have a distal right pulmonary embolism, no heart strain. Dr. Correia made aware, EKG cardiac labs added. 2018: Final CTA read reveals moderate burden of distal main to lobar and segmental pulmonary embolus of the right lung. No evidence of heart strain or infarct. No acute cardiopulmonary process, there is a small loculated pleural effusion on the left with bibasilar atelectasis.' 2034: Printed and reviewed all imaging results with patient and his at bedside. Informed patient that he has a blood clot in his lung, we will need to be started on blood thinners and be admitted to the hospital. Patient denies any history hemorrhagic stroke, recent surgery, black stool, bloody stool, hematemesis or other concerns for bleed, no recent fall or trauma. Patient is agreeable to admission to the hospital. Transfer of care to nighttime ED doctor, Dr. Correia. 9:32 p.m.. I spoke with hospitalist Dr. Mejia, who would like to start Lovenox 1 milligram/kilogram now. I did review with them we did contact Urology Services and General surgery. Patient will be admitted inpatient Discharge Plan Departure Patient Disposition: Admitted As Inpatient Clinical Impression: Hernia, inguinal, right, Bladder wall thickening, Pleural effusion, left Pulmonary embolism Qualifiers: Pulmonary embolism type: unspecified Chronicity: acute Acute cor pulmonale presence: without acute cor pulmonale Qualified Code(s): I26.99 - Other pulmonary embolism without acute cor pulmonale Admit Date/Time: 03/28/25 21:32 Admit Provider: Chase Mejia ED Sign-out <Jose Correia MD - Last Filed: 03/31/25 08:21> Cosign ED Attending Cosignature Attestation: I personally evaluated and examined the patient and agree with the assessment, treatment plan, and disposition of the patient as recorded by the APC. MD Bren
--- NOTE | 2025-03-28 16:32 | DI.CT.S_ITS ---
PROCEDURE: CT ABDOMEN PELVIS W CON INDICATIONS: large painful R inguinal hernia TECHNIQUE: After the administration of intravenous contrast, axial sections acquired from the lung bases to the pubic symphysis. Coronal and sagittal reformats were performed. For radiation dose reduction, the following was used: automated exposure control, adjustment of mA and/or kV according to patient size. COMPARISON: None. FINDINGS: Image quality: Diagnostic. Lower Chest: Loculated left-sided pleural effusion. Rounded atelectasis in the right lung base. Cardiomegaly. ABDOMEN: Liver: Scattered subcentimeter hypoattenuating lesions, too small to characterize by CT but probably small cysts. Gallbladder: No radiopaque gallstones or wall thickening. Biliary ducts: No biliary dilation. Pancreas: No ductal dilation. Spleen: Size is within normal limits. Adrenal Glands: No adrenal nodules. Kidneys and Ureters: No hydronephrosis. No solid mass. No complex renal cystic lesion which requires follow up. Stomach and Bowel: Normal colonic caliber, without significant wall thickening. Colonic diverticulosis without evidence of diverticulitis. Peritoneum: Small volume free fluid in the right inguinal canal. Ventral Wall: No significant ventral hernia. Abdominal Nodes: No retroperitoneal or mesenteric adenopathy by size criteria. Vessels: Aorta and inferior vena cava are normal in size. PELVIS: Pelvic Organs: Unremarkable. Bladder: Focal anterior bladder wall thickening with central calcification. Pelvic Nodes: No enlarged lymph nodes. Miscellaneous: Large right direct inguinal hernia containing the cecum and appendix. Small free fluid is present as well. Bones: No aggressive osseous abnormality. IMPRESSION: Large right direct inguinal hernia containing the cecum and noninflamed appendix. Trace free fluid within the inguinal canal is likely reactive. Anterior bladder wall thickening with coarse calcification, raising the concern for malignancy in a urachal remnant. Urology referral is recommended. Trace left loculated pleural effusion. Colonic diverticulosis without evidence of diverticulitis. Dictated by: Al London M.D. on 03/28/2025 at 17:54 Approved by: Al London M.D. on 03/28/2025 at 17:57
[2025-03-28] MEDS: ONDANSETRON 4 MG/2 ML INJ IV (16:57)
[2025-03-28] MEDS: SODIUM CHLORIDE 0.9% 1,000 ML 500 ML IV (16:58)
[2025-03-28 17:11] LABS: Add Manual Diff / Slide Review NO; Hematocrit 44.9 % (41-53); Hemoglobin 15.3 g/dL (13.5-17.5); Lymphocytes Absolute Auto 1100 /uL (1100-4500); Mean Corpuscular HGB Conc 34.1 % (30-36); Mean Corpuscular Hemoglobin 33.4 PG (26-34); Mean Corpuscular Volume 97.9 fL (80-100); Platelet Count 228 X10^3/uL (150-400)
[2025-03-28 17:23] LABS: Alanine Aminotransferase 17 IU/L (<50); Albumin 3.6 g/dL (3.5-5.0); Albumin Globulin Ratio 1.2 (1.0-2.8); Alkaline Phosphatase 58 U/L (38-126); Blood Urea Nitrogen 19 mg/dL (9-20); Calcium 9.6 mg/dL (8.4-10.2); Carbon Dioxide 26 mmol/L (22-32); Chloride 109 mmol/L (98-107); Estimated Glomerular Filt Rate > 60 mL/min (>60); Globulin 3.0 g/dL (1.7-4.1); Glucose 102 mg/dL (70-99); HEMOLYSIS 16 (0-50); Lipase 32 U/L (23-300); Potassium 3.8 mmol/L (3.4-5.1); Sodium 139 mmol/L (137-145); Total Protein 6.6 g/dL (6.3-8.2)
[2025-03-28 17:28] LABS: Lactate (Lactic Acid) 1.1 mmol/L (0.7-2.1)
[2025-03-28 19:09] LABS: Culture Indicated Urine Cult Not Indicated
--- NOTE | 2025-03-28 19:12 | DI.CT.S_ITS ---
PROCEDURE: CT ANGIO CHEST PE PROTOCOL INDICATIONS: cough, pleural effusion, occ hemoptysis, bladder Ca TECHNIQUE: After the administration of intravenous contrast, 2 mm thick sections acquired from the pulmonary apices to the posterior costophrenic angles. 3-dimensional maximum intensity projection (MIP) coronal and sagittal reformats were then acquired through the thorax. For radiation dose reduction, the following was used: automated exposure control, adjustment of mA and/or kV according to patient size. COMPARISON: None. FINDINGS: Image quality: Diagnostic. Pulmonary arteries: Pulmonary embolus in the distal right pulmonary artery, extending into the lobar and subsegmental pulmonary arteries, predominantly of the right upper lobe. Lower Neck: No enlarged lymph nodes. Thyroid: No thyroid nodules which require sonographic follow up, per consensus guidelines. Axillae: No enlarged lymph nodes. Chest Wall: Unremarkable. Bones: Unremarkable. Lungs and Pleura: Small loculated pleural effusion on the left, with bibasilar atelectasis. Heart: Heart size is globally enlarged, with normal left ventricle to right ventricle ratio. No pericardial effusion. Thoracic Vessels: No aortic aneurysm. Mediastinum and Jade: No enlarged lymph nodes. Esophagus: No wall thickening. No hiatal hernia. Upper Abdomen: Visualized upper abdomen solid organs and bowel loops appear normal. IMPRESSION: Moderate burden of distal main to lobar and segmental pulmonary embolus of the right lung. No evidence of heart strain or infarct. No acute cardiopulmonary process. Findings discussed with provider Kelli at time of dictation. Dictated by: Al London M.D. on 03/28/2025 at 19:52 Approved by: Al London M.D. on 03/28/2025 at 19:56
--- NOTE | 2025-03-28 19:56 | EKG_ITS ---
[facility] [address] [address] Test Date: 2025-03-28 Pat Name: Peter Godfrey Department: [facility] Room: Gender: Male Sample Checker: ELIJAH : 1950 Requested By: Order Number: [id number] Reading MD: Measurements Intervals [place] Rate: 70 P: 39 CT: 166 QRS: -15 QRSD: 144 T: 1 QT: 414 QTc: 447 Interpretive Statements Normal sinus rhythm Right bundle branch block
[2025-03-28 20:32] LABS: INR 1.1 (0.9-1.3); Prothrombin Time 12.2 SECONDS (9.4-12.5)
[2025-03-28 20:35] LABS: PTT Partial Thromboplastin Tim 27 SECONDS (25.1-36.5)
[2025-03-28 20:40] LABS: Creatine Kinase < 20 U/L (55-170)
[2025-03-28 20:51] LABS: NT-proBNP (BNP-Adult 18+) 369 pg/mL (<450)
[2025-03-28 20:53] LABS: Troponin I 0.013 ng/mL (0.01-0.034)
[2025-03-28 20:58] LABS: Procalcitonin 0.039 ng/mL (<0.5)
[2025-03-28] MEDS: ENOXAPARIN 100 MG/ML SYRINGE 75 MG SUBCUT (22:17)
--- NOTE | 2025-03-29 00:28 | PC.ADMIT ---
[email or web address] [address] Admission Note: Admitted to ACU at 22:50 from ED, spouse present. A/O x 4, denies pain. Oriented to room and call light. Call light within reach. The patient,Peter Godfrey,75 y/o, was given written information regarding hospital policies, unit procedures and contact persons. Patient's smoking status: Never smoker. Vital Signs - 8 hr 03/28/25 16:57 03/28/25 17:00 03/28/25 17:00 Temperature Pulse Rate 68 67 Respiratory Rate 16 Blood Pressure 138/76 Pulse Oximetry 92 95 Oxygen Delivery Method Oxygen Flow Rate 03/28/25 17:37 03/28/25 18:00 03/28/25 18:03 Temperature Pulse Rate 73 72 Respiratory Rate Blood Pressure 145/79 H Pulse Oximetry 93 94 Oxygen Delivery Method Oxygen Flow Rate 03/28/25 18:03 03/28/25 18:30 03/28/25 18:30 Temperature Pulse Rate 77 73 Respiratory Rate 16 Blood Pressure 156/79 H Pulse Oximetry 95 95 Oxygen Delivery Method Oxygen Flow Rate 03/28/25 19:00 03/28/25 19:30 03/28/25 19:46 Temperature Pulse Rate 76 75 Respiratory Rate 20 Blood Pressure 153/84 H Pulse Oximetry 95 93 Oxygen Delivery Method Oxygen Flow Rate 03/28/25 19:46 03/28/25 20:00 03/28/25 20:00 Temperature Pulse Rate 75 72 Respiratory Rate 16 22 Blood Pressure 156/89 H Pulse Oximetry 96 94 Oxygen Delivery Method Oxygen Flow Rate 03/28/25 20:30 03/28/25 20:30 03/28/25 20:43 Temperature Pulse Rate 72 Respiratory Rate 16 Blood Pressure 166/88 H Pulse Oximetry 95 94 Oxygen Delivery Method Oxygen Flow Rate 03/28/25 21:00 03/28/25 21:28 03/28/25 21:29 Temperature Pulse Rate 73 Respiratory Rate Blood Pressure 151/78 H Pulse Oximetry 95 Oxygen Delivery Method Room Air Oxygen Flow Rate 03/28/25 21:30 03/28/25 21:30 03/28/25 22:00 Temperature Pulse Rate 74 Respiratory Rate 23 Blood Pressure 160/91 H 139/76 Pulse Oximetry Oxygen Delivery Method Oxygen Flow Rate 03/28/25 22:00 03/28/25 22:30 11/28/25 22:30 Temperature Pulse Rate 69 72 Respiratory Rate 22 15 Blood Pressure 143/83 H Pulse Oximetry Oxygen Delivery Method Oxygen Flow Rate 03/28/25 22:50 03/28/25 23:07 Temperature 97.7 F Pulse Rate 67 Respiratory Rate 20 Blood Pressure 150/83 H Pulse Oximetry 95 Oxygen Delivery Method Room Air Oxygen Flow Rate 0
[2025-03-29 04:00] VITALS: BP 129/84; PULSE 75; RESP 16; TEMP 36.4; O2SAT 95
--- NOTE | 2025-03-29 04:54 | PM.HP.1 ---
History of Present Illness History of Present Illness Date Patient Seen: 03/28/25 Time Patient Seen: 23:12 Chief complaint: coughed yesterday and felt pain in hernia Narrative: 75-year-old male with past history of BPH, hyperlipidemia, pretension, right inguinal hernia, Camara's esophagus presents with severe right inguinal pain. Per the patient's report the patient has been coughing since yesterday. For last month or so, the patient noticed that his right inguinal hernia has and swelling. However today the swelling has worsened and that the patient has moderate to severely. Last night, the patient did have increasing cough and he thought this was due to his underlying Camara's esophagus. The patient states that he has some mild shortness of breath but otherwise denies any chest pain, fever, chills, nausea, vomiting, diarrhea or changes in his bowel movement. The patient however also reports that he has had poor appetite today. In the emergency room, the patient was hemodynamically stable saturating well on room air. CT scan of the abdomen and pelvic shows large right direct inguinal hernia containing the cecum and noninflamed appendix. No obstruction noted. In addition there was anterior bladder wall thickening with coarse calcification concerning for possible malignancy. Urology referral was recommended. Our ER physician did reduce the right inguinal hernia but did partially. The patient pain did improve. Dr. Chu from general surgery was consulted who recommended patient should follow-up as outpatient. In addition urology was also consulted and recommended to follow-up as outpatient. NSTEMI CT angio of the chest shows distal right pulmonary embolism with no right heart strain. The patient was given Lovenox and request for admission. [facility] Medical History Shoulder pain (~1974) Foot pain (~2014) Mumps Measles Chicken pox Ruptured tympanic membrane (~2004) History of urinary incontinence (~2019) GERD (gastroesophageal reflux disease) (~2009) Routine general medical examination at a health care facility History of melanoma (~1995) Erectile dysfunction BPH w urinary obs/LUTS (~2014) Elevated PSA Tonsillectomy planned Male circumcision Male erectile disorder Elevated PSA Surgical History Anesthesia History of carpal tunnel surgery (~2004) History of tonsillectomy (~1956) Melanoma (~1995) H/O shoulder surgery (~1973) Family History Father Stroke Heart disease Hyperlipidemia Mother Emphysema of lung Sister Emphysema of lung Social History marital status: number of children: 1 household members: spouse and children Smoking Status: Never smoker alcohol intake: current Meds Home Medications and Allergies Home Medications ?Medication ?Instructions ?Recorded ?Confirmed ?Type cholecalciferol (vitamin D3) 50 50 mcg PO DAILY 11/13/19 03/28/25 History mcg (2,000 unit) tablet coenzyme Q10 75 mg capsule (Ultra 300 mg PO DAILY 11/23/22 03/28/25 History CoQ10) loratadine 10 mg capsule 10 mg PO DAILY PRN allergy symptoms 11/23/22 03/28/25 History omega 3-vju-tol-fish oil 230 mg See Rx Instructions PO DAILY PRN 11/23/22 10/10/24 History (150 mg-30 mg)-710 mg emulsion packet triamcinolone acetonide 0.1 % 1 applic topical DAILY PRN 11/23/22 10/10/24 History topical cream tamsulosin 0.4 mg capsule 0.8 mg (2 x 0.4 mg) PO BEDTIME 04/16/24 03/28/25 Rx #180 caps aspirin 81 mg tablet,delayed 81 mg PO DAILY #0 tabs 07/10/24 03/28/25 History release fluorouracil 5 % topical cream 1 applic topical BID 07/10/24 03/28/25 History lisinopril 20 1 tab PO DAILY #90 tabs 01/15/25 03/28/25 Rx mg-hydrochlorothiazide 12.5 mg tablet atorvastatin 20 mg tablet (Lipitor) 20 mg PO BEDTIME #90 tabs 01/16/25 03/28/25 Rx Allergies Allergy/AdvReac Type Severity Reaction Status Date / Time morphine Allergy Unknown Verified 03/28/25 15:51 Review of Systems Review of Systems ROS: Yes All systems reviewed with the patient and are negative except as otherwise documented Exam Vital Signs (past 8 hours): - 03/28/25 21:00 03/28/25 21:28 03/28/25 21:29 Temperature Pulse Rate 73 Respiratory Rate Blood Pressure 151/78 H Pulse Oximetry 95 Oxygen Delivery Method Room Air Oxygen Flow Rate 03/28/25 21:30 03/28/25 21:30 03/28/25 22:00 Temperature Pulse Rate 74 Respiratory Rate 23 Blood Pressure 160/91 H 139/76 Pulse Oximetry Oxygen Delivery Method Oxygen Flow Rate 03/28/25 22:00 03/28/25 22:30 03/28/25 22:30 Temperature Pulse Rate 69 72 Respiratory Rate 22 15 Blood Pressure 143/83 H Pulse Oximetry Oxygen Delivery Method Oxygen Flow Rate 03/28/25 22:50 03/28/25 23:07 03/29/25 04:00 Temperature 97.7 F 97.6 F Pulse Rate 67 75 Respiratory Rate 20 16 Blood Pressure 150/83 H 129/84 Pulse Oximetry 95 95 Oxygen Delivery Method Room Air Oxygen Flow Rate 0 0 Oxygen Delivery Method Room Air Oxygen Flow Rate 0 Narrative Exam Narrative: Physical Exam: GENERAL: The patient is not in any acute distressed. Awake and alert. HEENT: Nonicteric sclerae, PERRLA, EOMI. Oropharynx clear. Moist mucous membranes. Conjunctivae appear well perfused. HEART: Regular rate and rhythm without murmurs. No lower extremities edema. LUNGS: Clear to auscultation bilaterally. No wheezing, crackles or rhonchi ABDOMEN: Soft, positive bowel sounds, nontender. SKIN: No rash, no excessive bruising, petechiae, or purpura. NEUROLOGIC: AxO x 3. Cranial nerves II-XII intact without motor/sensory deficit. Objective Labs 03/28/25 16:50 03/28/25 16:50 Labs: Laboratory Results - last 24 hr 03/28/25 03/28/25 03/28/25 16:50 18:45 20:08 WBC 7.0 RBC 4.58 Hgb 15.3 Hct 44.9 MCV 97.9 MCH 33.4 MCHC 34.1 RDW 13.3 Plt Count 228 Neut % (Auto) 74.9 Lymph % (Auto) 15.3 L [place] % (Auto) 7.6 Eos % (Auto) 1.4 L Baso % (Auto) 0.8 Neut # (Auto) 5200 Lymph # (Auto) 1100 [place] # (Auto) 500 Eos # (Auto) 100 Baso # (Auto) 100 PT 12.2 INR 1.1 APTT 27 Sodium 139 Potassium 3.8 Chloride 109 H Carbon Dioxide 26 BUN 19 Creatinine 0.69 Estimated GFR > 60 BUN/Creatinine Ratio 27.5 H Glucose 102 H Lactate 1.1 Calcium 9.6 Total Bilirubin 0.6 AST 21 ALT 17 Alkaline Phosphatase 58 Total Creatine Kinase < 20 L Troponin I 0.013 NT-Pro-B Natriuret Pep 369 Total Protein 6.6 Albumin 3.6 Globulin 3.0 Albumin/Globulin Ratio 1.2 Lipase 32 Procalcitonin 0.039 Urine RBC 0-1/hpf Urine WBC 0-1/hpf Ur Squamous Epith Cells 0-1 /hpf Urine Bacteria Occasional (0-1) Urine Mucus 1+ H Ur Culture Indicated? Cult not indicated Vol Urine Centrifuged 10ml (spun) Assessment & Plan Assessment & Plan narrative: Right sided pulmonary embolism. Met the patient to medical telemetry under observation. Of note the patient does not have sign of right heart strain on CT scan. Will continue Lovenox therapeutic dose. Patient denies any risk factors such as malignancy, immobility, recent surgery, active tobacco smoking, or family history of blood clots. Will obtain echocardiogram in the morning. Patient is saturating well on room air and is hemodynamically stable. Right inguinal hernia. Personally reviewed physician. Dr. Chu from general surgery recommended outpatient follow-up. Pain control. Incidental finding of bladder wall wall thickening with calcification. Will need to follow-up with urologist with possible cystoscopy as outpatient. Dr. Power from [facility] urology was consulted and requested outpatient follow-up with him. Hyperlipidemia. Resume home statin. Hypertension. Monitor blood pressure and will resume home medication accordingly. BPH. Resume home Flomax. DVT prophylaxis Lovenox. CODE STATUS full code. Disposition likely home in 1 to 2 days - As the provider of this telehealth evaluation, requested by the patient's evaluating physician, I attest that I introduced myself to the patient, provided my credentials and determined that telemedicine via a real-time, 2 way interactive audio and video platform is an appropriate and effective means of providing this service. - I reviewed the patient's chart and had a discussion with the member of the patient's treatment team. - The patient and I mutually agreed with continuation of this evaluation via telemedicine. The patient consented for the telemedicine evaluation. - This virtual encounter was taken place from [place] by Dr. Chase Mejia. The patient was evaluated at [facility]. The encounter was approximately 35 minutes. The nurse was present during the entire time of the encounter and was able to assists with exam/stethoscope. Time-Based Coding :: [TOTAL MINUTES] spent with patient and on the chart (including review of chart, obtaining history, exam, reviewing outside data, placing orders, documenting exam and treatment plan, and counseling patient) on [DATE]. Quality VTE Deep Vein Thrombosis/Pulmonary Embolism Present on Admission: Yes
[2025-03-29 05:37] LABS: Add Manual Diff / Slide Review NO; Hematocrit 43.3 % (41-53); Hemoglobin 14.9 g/dL (13.5-17.5); Lymphocytes Absolute Auto 1100 /uL (1100-4500); Mean Corpuscular HGB Conc 34.4 % (30-36); Mean Corpuscular Hemoglobin 33.6 PG (26-34); Mean Corpuscular Volume 97.7 fL (80-100); Platelet Count 249 X10^3/uL (150-400)
[2025-03-29 05:46] LABS: Blood Urea Nitrogen 15 mg/dL (9-20); Calcium 9.5 mg/dL (8.4-10.2); Carbon Dioxide 25 mmol/L (22-32); Chloride 107 mmol/L (98-107); Estimated Glomerular Filt Rate > 60 mL/min (>60); Glucose 94 mg/dL (70-99); HEMOLYSIS 15 (0-50); Potassium 4.2 mmol/L (3.4-5.1); Sodium 139 mmol/L (137-145)
[2025-03-29 07:28] VITALS: BP 145/91; PULSE 69; RESP 18; TEMP 36.3; O2SAT 95
--- NOTE | 2025-03-29 07:42 | P.HP_ITS ---
History of Present Illness History of Present Illness Date Patient Seen: 03/29/25 Chief complaint: Right PE coughed pain in hernia bladder wall [facility] Narrative: Chief complaint: Coughed yesterday and felt pain in hernia partially reduced with findings of right PE also and bladder wall thickening incidentally History of present illness: 03/28: 75-year-old male with past history of BPH, hyperlipidemia, pretension, right inguinal hernia, Camara's esophagus presents with severe right inguinal pain. Per the patient's report the patient has been coughing since yesterday. For last month or so, the patient noticed that his right inguinal hernia has and swelling. However today the swelling has worsened and that the patient has moderate to severely. Last night, the patient did have increasing cough and he thought this was due to his underlying Camara's esophagus. The patient states that he has some mild shortness of breath but otherwise denies any chest pain, fever, chills, nausea, vomiting, diarrhea or changes in his bowel movement. The patient however also reports that he has had poor appetite today. In the emergency room, the patient was hemodynamically stable saturating well on room air. CT scan of the abdomen and pelvic shows large right direct inguinal hernia containing the cecum and noninflamed appendix. No obstruction noted. In addition there was anterior bladder wall thickening with coarse calcification concerning for possible malignancy. Urology referral was recommended. Our ER physician did reduce the right inguinal hernia but did partially. The patient pain did improve. Dr. Chu from general surgery was consulted who recommended patient should follow-up as outpatient. In addition urology was also consulted and recommended to follow-up as outpatient. NSTEMI CT angio of the chest shows distal right pulmonary embolism with no right heart strain. The patient was given Lovenox and request for admission. Hospital course: 03/29: Review of systems: Physical exam: Assessment and plan: Right sided pulmonary embolism. Met the patient to medical telemetry under observation. Of note the patient does not have sign of right heart strain on CT scan. * Will continue Lovenox therapeutic dose. * Patient denies any risk factors such as malignancy, immobility, recent surgery, active tobacco smoking, or family history of blood clots. * Will obtain echocardiogram in the morning. * Patient is saturating well on room air and is hemodynamically stable. Right inguinal hernia. Personally reviewed physician. * Dr. Chu from general surgery recommended outpatient follow-up. * Pain control. Incidental finding of bladder wall wall thickening with calcification. * Will need to follow-up with urologist with possible cystoscopy as outpatient. * Dr. Power from [facility] urology was consulted and requested outpatient follow-up with him. Hyperlipidemia. * Resume home statin. Hypertension. * Monitor blood pressure and will resume home medication accordingly. BPH. * Resume home Flomax. DVT prophylaxis * Covered therapeutic Lovenox. CODE STATUS * Full code. Disposition * Likely home in 1 to 2 days Time based billing: * 55 minutes were involved in the evaluation of this patient including [id number] evaluation review of medical records direct visualization of imaging review of objective laboratory findings and discussion with care management [facility] Medical History Shoulder pain (~1974) Foot pain (~2014) Mumps Measles Chicken pox Ruptured tympanic membrane (~2004) History of urinary incontinence (~2019) GERD (gastroesophageal reflux disease) (~2009) Routine general medical examination at a health care facility History of melanoma (~1995) Erectile dysfunction BPH w urinary obs/LUTS (~2014) Elevated PSA Tonsillectomy planned Male circumcision Male erectile disorder Elevated PSA Surgical History Anesthesia History of carpal tunnel surgery (~2004) History of tonsillectomy (~1956) Melanoma (~1995) H/O shoulder surgery (~1973) Family History Father Stroke Heart disease Hyperlipidemia Mother Emphysema of lung Sister Emphysema of lung Social History marital status: number of children: 1 household members: spouse and children Smoking Status: Never smoker alcohol intake: current Meds Home Medications and Allergies Home Medications ?Medication ?Instructions ?Recorded ?Confirmed ?Type cholecalciferol (vitamin D3) 50 50 mcg PO DAILY 03/28/25 History mcg (2,000 unit) tablet coenzyme Q10 75 mg capsule (Ultra 300 mg PO DAILY 10/3003/28/25 History CoQ10) loratadine 10 mg capsule 10 mg PO DAILY PRN allergy s ymptoms 11/23/22 03/28/25 History omega 3-ivl-kzm-fish oil 230 mg See Rx Instructions PO DAILY PRN 11/23/22 10/10/24 History (150 mg-30 mg)-710 mg emulsion packet triamcinolone acetonide 0.1 % 1 applic topical DAILY P RN 11/23/22 10/10/24 History topical cream tamsulosin 0.4 mg capsule 0.8 mg (2 x 0.4 mg) PO BEDTI ME 04/16/24 03/28/25 Rx #180 caps aspirin 81 mg tablet,delayed 81 mg PO DAILY #0 tabs 03/28/25 History release fluorouracil 5 % topical cream 1 applic topical BID 03/28/25 History lisinopril 20 1 tab PO DAILY #90 tabs 12/3003/28/25 Rx mg-hydrochlorothiazide 12.5 mg tablet atorvastatin 20 mg tablet (Lipitor) 20 mg PO BEDTIME # 90 tabs 01/16/25 03/28/25 Rx apixaban 5 mg (74 tabs) tablets in See Rx Instructions PO .COMPLEX 03/29/25 Rx a dose pack (EliquDatacratic DVT-PE Treat #74 ea 30D Start) Allergies Allergy/AdvReac Type Severity Reaction Status Date / Time morphine Allergy Unknown Verified 03/28/25 15:51 Exam Vital Signs (past 8 hours): - 03/29/25 04:00 03/29/25 07:28 Temperature 97.6 F 97.4 F L Pulse Rate 75 69 Respiratory Rate 16 18 Blood Pressure 129/84 145/91 H Pulse Oximetry 95 95 Oxygen Flow Rate 0 Oxygen Delivery Method Room Air Oxygen Flow Rate 0 Objective Labs 03/29/25 05:24 03/29/25 05:24 Labs: Laboratory Results - last 24 hr 03/28/25 03/28/25 03/28/25 16:50 18:45 20:08 WBC 7.0 RBC 4.58 Hgb 15.3 Hct 44.9 MCV 97.9 MCH 33.4 MCHC 34.1 RDW 13.3 Plt Count 228 Neut % (Auto) 74.9 Lymph % (Auto) 15.3 L [place] % (Auto) 7.6 Eos % (Auto) 1.4 L Baso % (Auto) 0.8 Neut # (Auto) 5200 Lymph # (Auto) 1100 [place] # (Auto) 500 Eos # (Auto) 100 Baso # (Auto) 100 PT 12.2 INR 1.1 APTT 27 Sodium 139 Potassium 3.8 Chloride 109 H Carbon Dioxide 26 BUN 19 Creatinine 0.69 Estimated GFR > 60 BUN/Creatinine Ratio 27.5 H Glucose 102 H Lactate 1.1 Calcium 9.6 Total Bilirubin 0.6 AST 21 ALT 17 Alkaline Phosphatase 58 Total Creatine Kinase < 20 L Troponin I 0.013 NT-Pro-B Natriuret Pep 369 Total Protein 6.6 Albumin 3.6 Globulin 3.0 Albumin/Globulin Ratio 1.2 Lipase 32 Procalcitonin 0.039 Urine RBC 0-1/hpf Urine WBC 0-1/hpf Ur Squamous Epith Cells 0-1 /hpf Urine Bacteria Occasional (0-1) Urine Mucus 1+ H Ur Culture Indicated? Cult not indicated Vol Urine Centrifuged 10ml (spun) 03/29/25 05:24 WBC 6.4 RBC 4.44 L Hgb 14.9 Hct 43.3 MCV 97.7 MCH 33.6 MCHC 34.4 RDW 13.4 Plt Count 249 Neut % (Auto) 71.9 Lymph % (Auto) 17.1 L [place] % (Auto) 9.1 Eos % (Auto) 1.2 L Baso % (Auto) 0.7 Neut # (Auto) 4600 Lymph # (Auto) 1100 [place] # (Auto) 600 Eos # (Auto) 100 Baso # (Auto) 0 PT INR APTT Sodium 139 Potassium 4.2 Chloride 107 Carbon Dioxide 25 BUN 15 Creatinine 0.69 Estimated GFR > 60 BUN/Creatinine Ratio 21.7 Glucose 94 Lactate Calcium 9.5 Total Bilirubin AST ALT Alkaline Phosphatase Total Creatine Kinase Troponin I NT-Pro-B Natriuret Pep Total Protein Albumin Globulin Albumin/Globulin Ratio Lipase Procalcitonin Urine RBC Urine WBC Ur Squamous Epith Cells Urine Bacteria Urine Mucus Ur Culture Indicated? Vol Urine Centrifuged Assessment & Plan Time-Based Coding :: [TOTAL MINUTES] spent with patient and on the chart (including review of chart, obtaining history, exam, reviewing outside data, placing orders, documenting exam and treatment plan, and counseling patient) on [DATE]. Quality VTE Deep Vein Thrombosis/Pulmonary Embolism Present on Admission: Yes
[2025-03-29] MEDS: ASPIRIN EC 81 MG TABLET PO (09:18)
[2025-03-29] MEDS: ENOXAPARIN 100 MG/ML SYRINGE 75 MG SUBCUT (09:18)
--- NOTE | 2025-03-29 11:26 | DI.US.S_ITS ---
PROCEDURE: US PERIPH VENOUS LOW EXTREM BI INDICATIONS: Pulmonary embolism TECHNIQUE: Real-time imaging, as well as color and pulse Doppler interrogation, were performed of the deep veins of both legs from the inguinal ligament to the popliteal fossa, with documentation of the visualized calf veins. COMPARISON: None. FINDINGS: Right: The common femoral, femoral, popliteal, and the visualized calf veins are normally compressible, and free of intraluminal thrombus. Color and pulse Doppler demonstrate normal phasic intravascular flow. There is normal augmentation response to distal compression maneuver. Left: The common femoral, femoral, popliteal, and the visualized calf veins are normally compressible, and free of intraluminal thrombus. Color and pulse Doppler demonstrate normal phasic intravascular flow. There is normal augmentation response to distal compression maneuver. IMPRESSION: No findings of deep venous thrombosis in either lower extremity. Dictated by: Luke Bear M.D. on 03/29/2025 at 16:57 Approved by: Luke Bear M.D. on 03/29/2025 at 16:57
--- NOTE | 2025-03-29 15:50 | CM.DANOTE ---
Patient is a 75 yo male who was admitted OBS Status on 03/28/25 for PE/hernia/Abd Pain. Pt has MCR and PRE PREFERRED for insurance and his PCP is Dr. Blaine Gomez at the [facility]. EMR was reviewed. Per , pt with hx of hernia and Barretts Esophogus and admitted for tx of PE with Lovenox. Echo ordered and pending. Per Urology and Surgeon Consult, recommend outpt f/u and no current acute need for intervention at the hospital. Per UR RN, met bedside with pt to provide his WILKS form and pt confirms he lives on [address] with his and family and is independent at baseline and no hx of HH or SNF. Pt confirms his preference is home when medically stable and currently does not anticipate any discharge needs. Plan: SW to follow for plan of home tonight vs tomorrow pending Echo results and will need outpt f/u with Urologist and General Surgeon. SW to follow for any further identified discharge planning needs. LUCINDA Cuevas Discharge Planning/Care Management CM Discharge Assessment Start: 03/28/25 23:07 Freq: Status: Active Protocol: Document 03/29/25 15:47 BF (Rec: 03/29/25 15:49 BF [id number]) Discharge Planning Assessment Assigned Discharge LUCINDA Ellis Plant Maintenance Engineer Provider Blaine Gomez, [facility] Insurance Medicare DPOA/Assigned spouse Bessy Designee Name Advance Directives? No Advance Directives No on File History Provided By Patient,Significant Other,Medical Record Has Patient been No admitted in last 30 days? Prior Living House Arrangements Household Members spouse,children Type of Drives own vehicle transporation used prior to admit Independent with ADL Yes 's Is patient alert and Yes oriented? Caregiver for No Another Barriers to No Discharge Discharge Plan Home Transportation Likely spouse to transport at d/c Arrangement Additional Comment Pending progress Review Status In Process Please Provide Date 03/29/25 Initial DC Assessment Was Performed Next Review Type Continued Stay Review
--- NOTE | 2025-03-29 16:57 | PC.NURSE ---
Pt denies discomfort aside from small area in right groin, med x 1 for discomfort w/ good relief. SL intact/patent. Tele D/C as per orders. Had ECHO and US w/ MD reading results Orders for D/C received.
--- NOTE | 2025-03-29 17:07 | PM.DS.1 ---
History of Present Illness History of Present Illness Chief complaint: Right PE coughed pain in hernia bladder wall [facility] Narrative: Chief complaint: Coughed yesterday and felt pain in hernia partially reduced with findings of right PE also and bladder wall thickening incidentally History of present illness: 03/28: 75-year-old male with past history of BPH, hyperlipidemia, pretension, right inguinal hernia, Camara's esophagus presents with severe right inguinal pain. Per the patient's report the patient has been coughing since yesterday. For last month or so, the patient noticed that his right inguinal hernia has and swelling. However today the swelling has worsened and that the patient has moderate to severely. Last night, the patient did have increasing cough and he thought this was due to his underlying Camara's esophagus. The patient states that he has some mild shortness of breath but otherwise denies any chest pain, fever, chills, nausea, vomiting, diarrhea or changes in his bowel movement. The patient however also reports that he has had poor appetite today. In the emergency room, the patient was hemodynamically stable saturating well on room air. CT scan of the abdomen and pelvic shows large right direct inguinal hernia containing the cecum and noninflamed appendix. No obstruction noted. In addition there was anterior bladder wall thickening with coarse calcification concerning for possible malignancy. Urology referral was recommended. Our ER physician did reduce the right inguinal hernia but did partially. The patient pain did improve. Dr. Chu from general surgery was consulted who recommended patient should follow-up as outpatient. In addition urology was also consulted and recommended to follow-up as outpatient. NSTEMI CT angio of the chest shows distal right pulmonary embolism with no right heart strain. The patient was given Lovenox and request for admission. Hospital course: 03/29: Echocardiogram shows no right cardiac strain ultrasound of both legs showed no DVT patient started on Eliquis PE start a pack Review of systems: Physical exam: Assessment and plan: Right sided pulmonary embolism. Met the patient to medical telemetry under observation. Of note the patient does not have sign of right heart strain on CT scan. assistant printer floor covering from Lovenox to Eliquis starter pack and discharged home Patient denies any risk factors such as malignancy, immobility, recent surgery, active tobacco smoking, or family history of blood clots. Echocardiogram without cardiac strain Venous Dopplers negative for DVT Right inguinal hernia. Personally reviewed physician. Dr. Chu from general surgery recommended outpatient follow-up. Pain control. Incidental finding of bladder wall wall thickening with calcification. Will need to follow-up with urologist with possible cystoscopy as outpatient. Dr. Power from [facility] urology was consulted and requested outpatient follow-up with him. Hyperlipidemia. Resume home statin. Hypertension. Monitor blood pressure and will resume home medication accordingly. BPH. Resume home Flomax. DVT prophylaxis Covered therapeutic Lovenox. CODE STATUS Full code. Disposition Discharge to home Time based billin minutes were involved in the evaluation of this patient including [id number] evaluation review of medical records direct visualization of imaging review of objective laboratory findings and discussion with care management Discharge Providers Provider Date of admission: 03/28/25 21:32 Discharge Date: 03/29/25 Primary care physician: Blaine Gomez MD Discharge provider: Zac Waggoner MD Exam Vital Signs (past 8 hours): Oxygen Delivery Method Room Air Oxygen Flow Rate 0 Objective Labs 03/29/25 05:24 03/29/25 05:24 Labs: Laboratory Results - last 24 hr 03/28/25 03/28/25 03/28/25 16:50 18:45 20:08 WBC 7.0 RBC 4.58 Hgb 15.3 Hct 44.9 MCV 97.9 MCH 33.4 MCHC 34.1 RDW 13.3 Plt Count 228 Neut % (Auto) 74.9 Lymph % (Auto) 15.3 L [place] % (Auto) 7.6 Eos % (Auto) 1.4 L Baso % (Auto) 0.8 Neut # (Auto) 5200 Lymph # (Auto) 1100 [place] # (Auto) 500 Eos # (Auto) 100 Baso # (Auto) 100 PT 12.2 INR 1.1 APTT 27 Sodium 139 Potassium 3.8 Chloride 109 H Carbon Dioxide 26 BUN 19 Creatinine 0.69 Estimated GFR > 60 BUN/Creatinine Ratio 27.5 H Glucose 102 H Lactate 1.1 Calcium 9.6 Total Bilirubin 0.6 AST 21 ALT 17 Alkaline Phosphatase 58 Total Creatine Kinase < 20 L Troponin I 0.013 NT-Pro-B Natriuret Pep 369 Total Protein 6.6 Albumin 3.6 Globulin 3.0 Albumin/Globulin Ratio 1.2 Lipase 32 Procalcitonin 0.039 Urine RBC 0-1/hpf Urine WBC 0-1/hpf Ur Squamous Epith Cells 0-1 /hpf Urine Bacteria Occasional (0-1) Urine Mucus 1+ H Ur Culture Indicated? Cult not indicated Vol Urine Centrifuged 10ml (spun) 03/29/25 05:24 WBC 6.4 RBC 4.44 L Hgb 14.9 Hct 43.3 MCV 97.7 MCH 33.6 MCHC 34.4 RDW 13.4 Plt Count 249 Neut % (Auto) 71.9 Lymph % (Auto) 17.1 L [place] % (Auto) 9.1 Eos % (Auto) 1.2 L Baso % (Auto) 0.7 Neut # (Auto) 4600 Lymph # (Auto) 1100 [place] # (Auto) 600 Eos # (Auto) 100 Baso # (Auto) 0 PT INR APTT Sodium 139 Potassium 4.2 Chloride 107 Carbon Dioxide 25 BUN 15 Creatinine 0.69 Estimated GFR > 60 BUN/Creatinine Ratio 21.7 Glucose 94 Lactate Calcium 9.5 Total Bilirubin AST ALT Alkaline Phosphatase Total Creatine Kinase Troponin I NT-Pro-B Natriuret Pep Total Protein Albumin Globulin Albumin/Globulin Ratio Lipase Procalcitonin Urine RBC Urine WBC Ur Squamous Epith Cells Urine Bacteria Urine Mucus Ur Culture Indicated? Vol Urine Centrifuged [facility] Medical History Shoulder pain (~1974) Foot pain (~2014) Mumps Measles Chicken pox Ruptured tympanic membrane (~2004) History of urinary incontinence (~2019) GERD (gastroesophageal reflux disease) (~2009) Routine general medical examination at a health care facility History of melanoma (~1995) Erectile dysfunction BPH w urinary obs/LUTS (~2014) Elevated PSA Tonsillectomy planned Male circumcision Male erectile disorder Elevated PSA Surgical History Anesthesia History of carpal tunnel surgery (~2004) History of tonsillectomy (~1956) Melanoma (~1995) H/O shoulder surgery (~1973) Family History Father Stroke Heart disease Hyperlipidemia Mother Emphysema of lung Sister Emphysema of lung Social History marital status: number of children: 1 household members: spouse and children Smoking Status: Never smoker alcohol intake: current Discharge Plan Discharge Plan Patient Disposition: Home Discharge orders & Medications Prescriptions: [place] DVT-PE Treat 30D Start 5 mg (74 tabs) tablets,dose pack See Rx Instructions .ROUTE .COMPLEX Qty: 74 0RF Rx Instructions: orally per package directions Continued tamsulosin 0.4 mg capsule 0.8 mg PO BEDTIME Qty: 180 2RF aspirin 81 mg tablet,delayed release (DR/EC) 81 mg PO DAILY Qty: 0 Patient Comments: 1am and 1pm with full glass of water lisinopril-hydrochlorothiazide 20-12.5 mg tablet 1 tab PO DAILY Qty: 90 3RF atorvastatin [Lipitor] 20 mg tablet 20 mg PO BEDTIME Qty: 90 3RF triamcinolone acetonide 0.1 % cream 1 applic topical DAILY PRN Patient Comments: As needed for skin rash loratadine 10 mg capsule 10 mg PO DAILY PRN (Reason: allergy symptoms) Ultra CoQ10 75 mg capsule 300 mg PO DAILY omega 3-wcc-ufz-fish oil 230(150-30)-710 mg emulsion in packet See Rx Instructions PO DAILY PRN Rx Instructions: 1400mg orally daily PRN; fluorouracil 5 % cream 1 applic topical BID cholecalciferol (vitamin D3) 50 mcg (2,000 unit) tablet 50 mcg PO DAILY Follow up/Referrals: [facility] [Provider Group] - 1 Week Monroe Saleem DO [Physician, Urology] - 2 Weeks Referral Note: [facility] Jah Chu MD [Physician, General Surgery] - 04/17/25 Referral Note: [facility] Blaine Gomez MD [Primary Care Provider, Family Practice] - 04/03/25 Activity Restrictions/Additional Instructions: Dear Mr. Godfrey, Thank you for coming to the emergency department. Please follow up with your primary care doctor within the next 2-3 days for ER follow-up. (If you do not have a PCP you can call [phone]. ?to schedule an appointment with an [facility] Primary Care Provider) IF YOU DEVELOP ANY NEW OR WORSENING SYMPTOMS, RETURN TO THE ER! Please read the attached instructions, they highlight more specific treatments and interventions for you at home. Thank you for letting me participate in your care, Kelli Shrestha PA-C Visit Report/Discharge Packet Stand Alone Forms: Patient Portal/API, Stroke Signs & Symptoms Discharge Data Primary Care Provider: Blaine Gomez VTE Deep Vein Thrombosis/Pulmonary Embolism Present on Admission: Yes
== END 2025-03-29 17:23 | disposition home or self-care (01) ==
LOC: ED 21:32 → AC 21:49
PROVIDERS: Physician Assistant; Admitting Provider Internal Medicine; Emergency Provider Emergency Medicine; PCP Family Medicine; Referring Provider Emergency Medicine; Visit Provider Internal Medicine
DX: K40.90 Unilateral inguinal hernia, without obstruction or gangrene, not specified as recurrent (principal); I26.99 Other pulmonary embolism without acute cor pulmonale; I10 Essential (primary) hypertension; E78.5 Hyperlipidemia, unspecified; N40.0 Benign prostatic hyperplasia without lower urinary tract symptoms; K22.70 Barrett's esophagus without dysplasia; N32.89 Other specified disorders of bladder
CPT/HCPCS: 36415; 71275; 74177; 80048; 80053; 81003; 81015; 82550; 83605; 83690; 83880; 84145; 84484; 85025; 85610; 85730; 93005; 93306; 93970; 96372; 96374; 96375; 99284; G0378; J1171; J1650; J2405; J7030; Q9967

== ENCOUNTER → 2025-04-10 10:29 | Outpatient (CLI) | payer MEDICARE, OTHER, SELFPAY ==
[2025-03-28 23:07] VITALS: BMI 31.9
[2025-04-10 19:17] LABS: Add Manual Diff / Slide Review NO; Hematocrit 45.9 % (41-53); Hemoglobin 15.9 g/dL (13.5-17.5); Lymphocytes Absolute Auto 1400 /uL (1100-4500); Mean Corpuscular HGB Conc 34.8 % (30-36); Mean Corpuscular Hemoglobin 33.7 PG (26-34); Mean Corpuscular Volume 96.8 fL (80-100); Platelet Count 305 X10^3/uL (150-400)
[2025-04-10 19:26] LABS: Alanine Aminotransferase 25 IU/L (<50); Albumin 3.6 g/dL (3.5-5.0); Albumin Globulin Ratio 1.4 (1.0-2.8); Alkaline Phosphatase 86 U/L (38-126); Blood Urea Nitrogen 12 mg/dL (9-20); Calcium 9.7 mg/dL (8.4-10.2); Carbon Dioxide 24 mmol/L (22-32); Chloride 106 mmol/L (98-107); Estimated Glomerular Filt Rate > 60 mL/min (>60); Globulin 2.6 g/dL (1.7-4.1); Glucose 101 mg/dL (70-99); HEMOLYSIS 30 (0-50); Potassium 4.4 mmol/L (3.4-5.1); Sodium 137 mmol/L (137-145); Total Protein 6.2 g/dL (6.3-8.2)
[2025-04-10 19:28] LABS: Appearance Urine UA CLEAR; Bilirubin Urine UA NEGATIVE (NEGATIVE); Color Urine UA YELLOW; Glucose Urine UA NEGATIVE (Negative); Ketones Urine UA NEGATIVE (NEGATIVE); Leukocyte Esterase Urine UA NEGATIVE (NEGATIVE); Nitrite Urine UA NEGATIVE (Negative); Occult Blood Urine UA NEGATIVE (Negative); Protein Urine UA NEGATIVE (Negative); Specific Gravity Urine UA 1.010 (1.000-1.035); Urobilinogen Urine UA 0.2 E.U./dL (0.2); pH Urine UA 7.0 (4.5-8.0)
[2025-04-10 19:46] LABS: Culture Indicated Urine Cult Not Indicated
== END ==
PROVIDERS: PCP Family Medicine; Visit Provider Family Medicine
DX: C61 Malignant neoplasm of prostate (principal); N32.89 Other specified disorders of bladder; I26.99 Other pulmonary embolism without acute cor pulmonale; J90 Pleural effusion, not elsewhere classified; R97.20 Elevated prostate specific antigen [PSA]; K22.70 Barrett's esophagus without dysplasia
CPT/HCPCS: 80053; 81001; 84153; 85025